=== PATIENT | male | born 1965 | race Caucasian/White ===

== ENCOUNTER 2018-05-15 20:37 | Inpatient (IN) | payer OTHER ==
[~2018-05-15] VITALS: Ht 185.4 cm; Wt 117.5 kg
--- NOTE | ~2018-05-15 | PROC ---
[address] [address] PROCEDURE REPORT Name: ALMA ROSA TREJO Room: [address] IN .R.#: [id number] Admission: 05/15/18 Attend Phys: Arnel Hickey MD Discharge: 05/18/18 Date of : 69 Report #: [id number] THIS REPORT FOR: //name// For GI report, please see the Provation report in Perceptive 7 content. By: [id number] Records Staff MICHELLE /CHRIS
[~2018-05-15 20:37] MED LIST: IBUPROFEN 800800 M1 PO; NORCO 5-325 TA1 EACH PO; ROBAXIN 750 MG750 M1 PO; beta blocker
[2018-05-15 20:42] VITALS: BP 176/128
[2018-05-15] MEDS ORDERED: ZANTAC 150MG T150 MG PO (20:53)
[2018-05-15] MEDS ORDERED: LOPRESSOR25 PO (20:54)
[2018-05-15 21:04] LABS: ABSOLUTE BASOPHILS 0.1 thou/uL (0.0-0.2); ABSOLUTE EOSINOPHILS 0.5 thou/uL (0.0-0.7); ABSOLUTE LYMPHOCYTES 2.3 thou/uL (0.8-5.3); ABSOLUTE MONOCYTES 0.8 thou/uL (0.0-1.2); ABSOLUTE NEUTROPHILS 5.9 thou/uL (1.6-8.1); BASOPHILS 1.3 %; EOSINOPHILS 5.1 %; HEMATOCRIT 45.2 % (42.0-52.0); HEMOGLOBIN 15.5 gm/dL (14.0-18.0); LYMPHOCYTES 23.6 %; MCH 29.4 pg (26.0-34.0); MCHC 34.2 g/dL (28.0-37.0); MCV 85.9 fL (80.0-100.0); MONOCYTES 8.8 %; MPV 8.2 fl. (7.2-11.1); NUCLEATED RBCS 0 /100WBC; PLATELET COUNT* 224 thou/uL (150-400); POLYS 61.2 %; RBC 5.26 mil/uL (4.50-6.00); RDW-CV 13.7 % (10.5-14.5); WBC 9.7 thou/uL (4.0-11.0)
[2018-05-15 21:08] LABS: POC CA IONIZED 5.1 mg/dL (4.5-5.3); POC HEMOGLOBIN 15.6 g/dL (12.0-17.0); POC POTASSIUM 4.4 mmol/L (3.5-4.9)
[2018-05-15 21:15] LABS: INR 0.9; PROTIME 9.3 Seconds (9.20-11.50)
[2018-05-15 21:16] LABS: ANION GAP 8 mmol/L (7-16); BUN 18 mg/dL (7-18); CALCIUM 9.1 mg/dL (8.5-10.1); CHLORIDE 103 mmol/L (98-107); CO2 28 mmol/L (21-32); CREATININE 1.1 mg/dL (0.6-1.3); GLUCOSE 113 mg/dL (70-99); POTASSIUM 4.2 mmol/L (3.5-5.1); SODIUM 139 mmol/L (136-145)
[2018-05-15 21:23] LABS: ALBUMIN 4.3 g/dL (3.4-5.0); ALKALINE PHOSPHATASE 75 U/L (46-116); SGOT 14 U/L (15-37); SGPT 37 U/L (30-65); TOTAL BILIRUBIN 0.6 mg/dL (<0.1-1.0); TOTAL PROTEIN 7.8 g/dL (6.4-8.2); TROPONIN-I LEVEL <0.06 ng/mL (<0.06)
[2018-05-15 23:04] LABS: URINE BILIRUBIN NEGATIVE (Negative); URINE BLOOD NEGATIVE (Negative); URINE CLARITY CLEAR; URINE COLOR YELLOW; URINE GLUCOSE-RANDOM NEGATIVE (Negative); URINE KETONES NEGATIVE (Negative); URINE LEUKOCYTES-REFLEX NEGATIVE (Negative); URINE NITRITE-REFLEX NEGATIVE (Negative); URINE PROTEIN NEGATIVE (Negative); URINE UROBILINOGEN 0.2 E.U./dl (0.2-1.0)
[2018-05-16] VITALS (14 sets, daily range): BP systolic 101–202; BP diastolic 58–127
[2018-05-16 08:05] LABS: HEMATOCRIT 43.7 % (42.0-52.0); HEMOGLOBIN 14.8 gm/dL (14.0-18.0); MCH 29.2 pg (26.0-34.0); MCHC 33.9 g/dL (28.0-37.0); MCV 86.2 fL (80.0-100.0); MPV 8.6 fl. (7.2-11.1); RBC 5.07 mil/uL (4.50-6.00); RDW-CV 13.5 % (10.5-14.5)
[2018-05-16 08:08] LABS: CALCIUM 8.3 mg/dL (8.5-10.1); CREATININE 0.9 mg/dL (0.6-1.3); POTASSIUM 4.1 mmol/L (3.5-5.1); TOTAL BILIRUBIN 0.8 mg/dL (<0.1-1.0); TOTAL PROTEIN 7.3 g/dL (6.4-8.2)
[2018-05-16 09:12] LABS: AMP/METHAMP Negative (Negative); BARBITURATES Negative (Negative); BENZODIAZEPINES Negative (Negative); COCAINE Negative (Negative); METHADONE Negative (Negative); OPIATES POSITIVE (Negative); PCP Negative (Negative); THC Negative (Negative)
--- NOTE | 2018-05-16 10:54 | EKG ---
[place] [address] ELECTROCARDIOGRAM REPORT Name: ALMA ROSA TREJO Room: [address] ADM IN M.R.#: [id number] Admission: 05/15/18 Attend Phys: Arnel Hickey MD Discharge: Date of : 69 Report #: [id number] THIS REPORT FOR: //name// [facility] ED Test Date: 2018-05-15 Test Time: 20:59:58 Pat Name: ALMA ROSA TREJO Department: Room: [address] Gender: M [place] Cutter: : 1965 Requested By: Lidia Spear Order Number: [id number] Reading MD: Serafin Isaacs Measurements Intervals [place] Rate: 78 P: 40 NC: 133 QRS: 28 QRSD: 103 T: 7 QT: 360 QTc: 411 Interpretive Statements sinus arrhythmia Low voltage, precordial leads Compared to ECG 06/30/2013 07:45:03 Low QRS voltage now present Sinus tachycardia no longer present Atrial premature complex(es) no longer present Electronically Signed On 05-16-2018 10:54:30 CDT by Serafin Isaacs [email or web address] <ELECTRONICALLY SIGNED> By: Serafin Isaacs MD, FAC 05/16/18 1054 58 58 Serafin Isaacs MD, [facility] /EPI
--- NOTE | 2018-05-16 11:04 | EKG ---
[place] [address] ELECTROCARDIOGRAM REPORT Name: ALMA ROSA TREJO Room: [address] ADM IN M.R.#: [id number] Admission: 05/15/18 Attend Phys: Arnel Hickey MD Discharge: Date of : 69 Report #: [id number] THIS REPORT FOR: //name// [place] Test Date: 2018-05-16 Test Time: 10:43:39 Pat Name: ALMA ROSA TREJO Department: Room: [address] Gender: M Quality Improvement Specialist: : 1965 Requested By: Eric Morse Order Number: [id number] Rachid MD: Serafin Isaacs Measurements Intervals [place] Rate: 147 P: 160 AR: 160 QRS: 51 QRSD: 97 T: -9 QT: 303 QTc: 474 Interpretive Statements atrial fibrillation Borderline T abnormalities, inferior leads Electronically Signed On 05-16-2018 11:04:05 CDT by Serafin Isaacs [email or web address] <ELECTRONICALLY SIGNED> By: Serafin Isaacs MD, [facility] 05/16/18 1104 1043 1043 Serafin Isaacs MD, FACC /EPI
--- NOTE | 2018-05-16 15:39 | 2DMMODE ---
[place] [address] 2 D/M-MODE ECHOCARDIOGRAM Name: ALMA ROSA TREJO Room: [address] IN .R.#: [id number] Admission: 05/15/18 Attend Phys: Arnel Hickey, Discharge: Date of : 69 Date of Service: 05/16/18 1538 Report #: [id number] THIS REPORT FOR: //name// APPROVED REPORT Study performed: 05/16/2018 14:18:37 EXAM: Comprehensive 2D, Doppler, and color-flow Echocardiogram Patient Location: Out-Patient Status: routine BSA: 2.32 HR: 115 bpm BP: 112/82 mmHg Other Information Study Quality: Fair Indications Atrial Fibrillation 2D Dimensions IVSd: 12.10 (7-11mm) LVOT Diam: 21.60 (18-24mm) LVDd: 45.73 mm PWd: 10.94 (7-11mm) Ascending Ao: 28.54 (22-36mm) LVDs: 29.55 (25-40mm) Aortic Root: 31.57 mm Volumes Left Atrial Volume (Systole) LA ESV Index: 17.20 mL/m2 Aortic Valve AoV Peak Frantz.: 1.50 m/s AO Peak Gr.: 9.04 mmHg LVOT Max P.95 mmHg AO Mean Gr.: 5.84 mmHg LVOT Mean P.52 mmHg LVOT Max V: 1.11 m/s AO V2 VTI: 21.76 cm LVOT Mean V: 0.73 m/s KELLI (VTI): 2.48 cm2 LVOT V1 VTI: 14.73 cm Mitral Valve MV Decel. Time: 159.23 ms MV PHT: 46.18 ms MVA (PHT): 4.76 cm2 [place] [address] 2 D/M-MODE ECHOCARDIOGRAM Name: ALMA ROSA TREJO Room: [address]#: [id number] Admission: 05/15/18 Attend Phys: Arnel Hickey, Discharge: Date of : 69 Date of Service: 05/16/18 1538 Report #: [id number] TDI Medial E' Frantz.: 0.14 m/s Lateral E' Frantz.: 0.15 m/s Pulmonary Valve PV Peak Frantz.: 0.94 m/s PV Peak Gr.: 3.57 mmHg Tricuspid Valve RAP Estimate: 5.00 mmHg TR Peak Gr.: 24.50 mmHg RVSP: 29.50 mmHg PA Pressure: 29.50 mmHg Left Ventricle The left ventricle is normal size. There is normal LV segmental wall motion. There is normal left ventricular wall thickness. Left ventricular systolic function is normal. The left ventricular ejection fraction is within the normal range. LVEF is 60-65%. The left ventricular diastolic function is normal. Right Ventricle Right ventricle is mildly dilated. The right ventricular systolic function is normal. Atria The left atrium size is normal. The right atrium size is normal. Aortic Valve The aortic valve is normal in structure. No aortic regurgitation is present. There is no aortic valvular stenosis. Mitral Valve The mitral valve is normal in structure. There is no mitral valve regurgitation noted. No evidence of mitral valve stenosis. Tricuspid Valve The tricuspid valve is normal in structure. Trace tricuspid regurgitation. Pulmonic Valve Pulmonic valve is not well visualized. There is no pulmonic valvular regurgitation. Great Vessels The aortic root is normal in size. IVC [place] [address] 2 D/M-MODE ECHOCARDIOGRAM Name: ALMA ROSA TREJO Room: [address] IN [facility]#: [id number] Admission: 05/15/18 Attend Phys: Arnel Hickey, Discharge: Date of : 69 Date of Service: 05/16/18 1538 Report #: [id number] Pericardium There is no pericardial effusion. <Conclusion> Left ventricular systolic function is normal. The left ventricular ejection fraction is within the normal range. <ELECTRONICALLY SIGNED> By: Serafin Isaacs MD, FACC 05/16/18 1538 1538 153 Serafin Isaacs MD, [facility] /INF
[2018-05-17] VITALS (7 sets, daily range): BP systolic 105–137; BP diastolic 67–84
--- NOTE | 2018-05-17 14:20 | EKG ---
[place] [address] ELECTROCARDIOGRAM REPORT Name: ALMA ROSA TREJO Room: [address] ADM IN M.R.#: [id number] Admission: 05/15/18 Attend Phys: Arnel Hickey MD Discharge: Date of : 69 Report #: [id number] THIS REPORT FOR: //name// [facility] Test Date: 2018-05-17 Test Time: 08:04:12 Pat Name: ALMA ROSA TREJO Department: Room: [address] Gender: M Sales Assistant: : 1965 Requested By: Serafin Isaacs Order Number: [id number] Rachid MD: Serafin Isaacs Measurements Intervals [place] Rate: 98 P: 49 NE: 133 QRS: 52 QRSD: 101 T: -1 QT: 338 QTc: 432 Interpretive Statements Sinus rhythm Low voltage, precordial leads Baseline wander in lead(s) V1 Compared to ECG 05/16/2018 10:43:39 Low QRS voltage now present Atrial fibrillation no longer present Electronically Signed On 05-17-2018 14:20:12 CDT by Serafin Isacas [email or web address] <ELECTRONICALLY SIGNED> By: Serafin Isaacs MD, [facility] 05/17/18 1420 0804 0804 Serafin Isaacs MD, [facility] /EPI
[2018-05-18] VITALS: BP 153/82
[2018-05-18 04:00] VITALS: BP 144/87
[2018-05-18 08:00] VITALS: BP 144/93
--- NOTE | 2018-05-18 10:08 | EKG ---
[place] [address] ELECTROCARDIOGRAM REPORT Name: ALMA ROSA TREJO Room: [address] ADM IN M.R.#: [id number] Admission: 05/15/18 Attend Phys: Arnel Hickey MD Discharge: Date of : 69 Report #: [id number] THIS REPORT FOR: //name// [facility] Test Date: 2018-05-18 Test Time: 08:41:01 Pat Name: ALMA ROSA TREJO Department: Room: [address] Gender: M Head Stock Operator: : 1965 Requested By: Serafin Isaacs Order Number: [id number] Rachid MD: Serafin Isaacs Measurements Intervals [place] Rate: 97 P: 42 MA: 127 QRS: 33 QRSD: 103 T: -1 QT: 329 QTc: 418 Interpretive Statements Sinus rhythm Low voltage, precordial leads Compared to ECG 05/17/2018 08:04:12 No significant changes Electronically Signed On 05-18-2018 10:08:31 CDT by Serafin Isaacs [email or web address] <ELECTRONICALLY SIGNED> By: Serafin Isaacs MD, [facility] 05/18/18 1008 0 0 Serafin Isaacs MD, [facility] /EPI
--- NOTE | 2018-05-18 10:11 | CON ---
[address] [address] CONSULTATION Name: ALMA ROSA TREJO Room: [address] IN .R.#: [id number] Admission: 05/15/18 Attend Phys: Arnel Hickey MD Discharge: Date of : 69 Report #: [id number] THIS REPORT FOR: //name// CC: Arnel MARTINEZ [facility] physician/PCP DATE OF SERVICE: 05/16/2018 HISTORY OF PRESENT ILLNESS: The patient is a 52-year-old white male who I was asked to see in the hospital today after he was noted to be in atrial fibrillation. The history was obtained from some old records as well as the patient. He has a long history of paroxysmal supraventricular tachycardia. Apparently, he has never been hospitalized. He had to go to the Emergency Room on occasion to have the arrhythmia terminated by intravenous medications. He had a previous cardiac evaluation by my partner, Dr. Houser. He had a stress echocardiogram back in 2014 that was negative for ischemia with an ejection fraction of 55%. The patient last saw Dr. Houser in 2015. He has been on metoprolol XL 50 mg a day. However, he notes that he does have a lot of indigestion which he was told would occur after taking oral metoprolol. Because of dyspepsia, he actually stopped taking metoprolol about 3 weeks ago. He was doing well until yesterday. His abdomen still distended. He also noticed some back pain. He finally came to the Emergency Room last night after he vomited. There was no blood in the vomit. Denies diarrhea or fever. He was admitted to a non-monitored bed. He received pain medications for his back pain. Today, he developed tachycardia and was started on IV diltiazem. Cardiology consultation was requested. He denied any significant feeling of his heart racing, lightheadedness, shortness of breath. He has had no recent chest pain. PAST MEDICAL HISTORY: Significant for hernia repair as a child, hemorrhoidectomy, nasal septal repair. He has a history of hypertension. No history of diabetes, hyperlipidemia. MEDICATIONS: His only medication at home and included the metoprolol, which he stopped taking 3 weeks ago. ALLERGIES: He has no known drug allergies. FAMILY HISTORY: Negative for heart disease. SOCIAL HISTORY: He is . He and his live here in [place]. He works in [employer]. Nonsmoker, rarely drinks alcohol. REVIEW OF SYSTEMS: He is overweight, being 6 feet tall, 250 pounds. He does snore at night. No history of asthma. Does have a lot of indigestion. No liver disease, no kidney disease, no cancer. [place] [address] CONSULTATION Name: ALMA ROSA TREJO Room: [address] IN [facility]#: [id number] Admission: 05/15/18 Attend Phys: Arnel Hickey MD Discharge: Date of : 69 Report #: [id number] chronic skin condition. PHYSICAL EXAMINATION: GENERAL: Revealed a large middle-aged male who appeared in no acute distress. VITAL SIGNS: He had a blood pressure of 110/80, pulse is 100, respirations nonlabored. HEENT: He is anicteric. Conjunctivae pink. Mucous membranes moist. NECK: Veins nondistended. No carotid bruits. Neck supple. CHEST: Clear to auscultation. CARDIOVASCULAR: Irregular tachycardia. ABDOMEN: Soft. EXTREMITIES: Had no edema. Posterior tibial pulse 1+ bilaterally. SKIN: Cool and dry. NEUROLOGIC: Nonfocal. LABORATORY DATA: ECG on admission last night showed a sinus rhythm. Today, the patient appears to be in a narrow complex tachycardia consistent with atrial fibrillation, but no significant ST or T-wave change. His workup so far, he had a CT scan of the abdomen on admission last night that showed no acute abnormality of the renal cysts. CT scan of the chest showed no pulmonary embolus. There is no aortic dissection. He had an ultrasound of the abdomen that showed gallstones, but no evidence of acute cholecystitis. His lab work, sodium 136, creatinine 0.9. Liver function studies were normal. Troponin 0.06. White blood cell count 13.0, hemoglobin 14.8. IMPRESSION AND RECOMMENDATIONS: 1. Back pain. Reason unclear. 2. Distended abdomen with vomiting. Possible cholecystitis. 3. Atrial fibrillation. History of supraventricular tachycardia. At this time, the patient is on IV Cardizem for rate control. If he fails to convert, he might require cardioversion. 4. Snoring at night. Consider sleep apnea. <ELECTRONICALLY SIGNED> By: Serafin Isaacs MD, [facility] 05/18/18 1011 1246 1820Dasurya Isaacs MD, [facility] /nt
[2018-05-18] MEDS ORDERED: PROTONIX40 M1 PO (11:18)
[2018-05-18] MEDS ORDERED: ASPIR-TRIN325 MG PO (11:19)
[2018-05-18] MEDS ORDERED: SORINE 80 MG TA80 M1 PO (11:19)
[2018-05-18] MEDS ORDERED: MIRALAX17 GM PO (11:20)
[2018-05-18] MEDS ORDERED: METAMUCIL FIBE3.4 GM PO (11:21)
[2018-05-18] MEDS ORDERED: TYLENOL325 MG PO (11:22)
[2018-05-18 11:24] VITALS: BP 144/93
[2018-05-18 12:00] VITALS: BP 137/86
--- NOTE | 2018-05-19 11:08 | PATH ---
[address] [address] PATHOLOGY RPT PROCEDURE Name: ALMA ROSA ALVARENGA Room: [address] IN ..#: [id number] Admission: 05/15/18 Date of : [birth year] Discharge: 05/18/18 Report #: [id number] Path Case #: [id number] [facility] Accession Number: [id number] . 01 Material submitted: . GASTRIC BIOPSY . 01 Clinical history: . For H. pylori . 02 Diagnosis: Gastric biopsy: - Mild nonspecific chronic gastritis, negative for Helicobacter pylori organisms and dysplasia. . (RAJEEV:vinicio; 05/18/2018) MBR/05/18/2018 . 02 Electronically signed: . Carlos Kelley MD, Pathologist NPI- [id number] . 01 Gross description: . Received in formalin labeled "Alma Rosa Alvarenga, gastric biopsy for H. pylori," are 3 segments of somers soft tissue measuring 0.9 x 0.6 x 0.2 cm in aggregate dimensions and ranging from 0.3 to 0.5 cm in maximum dimension. The specimen is submitted entirely in cassette A1. (TSD; 05/17/2018) TOB/TOB . 02 Pathologist provided ICD-10: K29.50 . 02 CPT . 599621 Specimen Comment: A courtesy copy of this report has been sent to Specimen Comment: [phone], . Specimen Comment: Report sent to and Performed at: [address] [facility] [address], [place], [place] [id number] MD Marek Nur MD Phone: [phone] Performed at: 02 [facility] [place] [address] [address], [place], [place] [id number] MD Carlos Kelley MD Phone: [phone]
--- NOTE | 2018-05-19 13:22 | CON ---
[address] [address] CONSULTATION Name: ALMA ROSA TREJO Room: [address] IN .R.#: [id number] Admission: 05/15/18 Attend Phys: Arnel Hickey MD Discharge: 05/18/18 Date of : 69 Report #: [id number] THIS REPORT FOR: //name// CC: Arnel Hickey [facility] physician/PCP DATE OF SERVICE: 05/17/2018 HISTORY OF PRESENT ILLNESS: This is a pleasant 52-year-old gentleman with past medical history significant for gallstone disease who is presenting with pain in his back and his chest. The patient reports that he began noticing acute onset pain in the back, which is located in the midline. The pain appeared spontaneously without any particular provocation and the pain was associated with nausea and vomiting. The patient also reports significant abdominal bloating and distention since the onset of the pain. The patient reports intermittent trouble swallowing and occasional reflux symptoms. He denies any weight loss, hematemesis, hematochezia or other alarm symptoms. The patient reports he never had an upper endoscopy performed in the past. PAST MEDICAL HISTORY: The patient reports he has a history of sinus tachycardia, but he also notes that he drinks up to 10 cups of coffee per day and reflux disease, for which he is on ranitidine. PAST SURGICAL HISTORY: None. FAMILY HISTORY: No family history of colon cancer or gastric or pancreatic malignancies. SOCIAL HISTORY: The patient denies any alcohol or tobacco use and denies any recreational drug use. REVIEW OF SYSTEMS: A comprehensive 10-point review of systems is negative except for what is mentioned here. PHYSICAL EXAMINATION: VITAL SIGNS: Temperature 36.8, pulse rate 151, blood pressure 133/90, oxygen saturation 95% on room air. GENERAL: The patient is alert, awake, oriented x 3. HEENT: There is no congestion. Mucous membranes are moist. Pupils are equal, round, reactive to light and accommodation. NECK: Supple. There is no supraclavicular lymphadenopathy. CARDIOVASCULAR: Rate and rhythm regular, S1, S2 present. LUNGS: Clear to auscultation bilaterally. ABDOMEN: Soft. There is no distention, no tenderness, no organomegaly. Bowel sounds present. EXTREMITIES: Warm, well perfused. There is no edema[place] [address] CONSULTATION Name: KAYLAAQUILINOALMA ROSA G Room: [address]#: [id number] Admission: 05/15/18 Attend Phys: Arnel Hickey MD Discharge: 05/18/18 Date of : 69 Report #: [id number] NEUROLOGIC: No focal neurological deficit. SKIN: Warm and dry. LABORATORY DATA: WBC count 9.7, hemoglobin 15.5, hematocrit 45.2, platelet count 224. Sodium 136, potassium 4.1, chloride 101, bicarbonate 28, BUN 15, creatinine 0.9, AST 16, ALT 35, alkaline phosphatase 66. INR 0.9. ASSESSMENT AND PLAN: This is a very pleasant 52-year-old gentleman with past medical history significant for sinus tachycardia and gallstone disease, presenting for evaluation of acute onset back pain associated with abdominal distention and bloating. The patient denies any alarm symptoms and has not had an upper endoscopy done before. We will proceed with EGD tomorrow and further recommendations will based on this testing. <ELECTRONICALLY SIGNED> By: Stef Welch MD 05/19/18 1322 2048 [id number] Welch MD /nt
[2018-07-19] MEDS ORDERED: CORTISPORIN OTI10 ML OTIC (07:39)
== END 2018-05-18 12:47 | disposition home health service (06) | DRG 381 ==
LOC: M.ERS 20:37 → M.2W 23:37 → M.TBA-ER 23:37 → M.ORTHSURG 05-16 01:36 → M.2W 05-16 11:35
PROVIDERS: Emergency Medicine; ADMIT Internal Medicine
PROC: 0DB78ZX Excision of Stomach, Pylorus, Via Natural or Artificial Opening Endoscopic, Diagnostic (ICD-10-PCS; principal; 2018-05-17)
DX: K22.10 Ulcer of esophagus without bleeding (principal); R65.10 Systemic inflammatory response syndrome (SIRS) of non-infectious origin without acute organ dysfunction; K80.20 Calculus of gallbladder without cholecystitis without obstruction; I10 Essential (primary) hypertension; I48.91 Unspecified atrial fibrillation; G47.30 Sleep apnea, unspecified; K21.9 Gastro-esophageal reflux disease without esophagitis; R14.0 Abdominal distension (gaseous); D72.829 Elevated white blood cell count, unspecified; T46.5X5A Adverse effect of other antihypertensive drugs, initial encounter; K25.9 Gastric ulcer, unspecified as acute or chronic, without hemorrhage or perforation; K29.70 Gastritis, unspecified, without bleeding; Z79.899 Other long term (current) drug therapy; Z90.49 Acquired absence of other specified parts of digestive tract; Y92.89 Other specified places as the place of occurrence of the external cause

== ENCOUNTER 2018-05-30 10:07 | Inpatient (IN) | payer OTHER ==
[~2018-05-30] VITALS: Ht 185.4 cm; Wt 112.1 kg
[~2018-05-30 10:07] MED LIST changes: +ASPIR-TRIN325 MG PO; +LOPRESSOR25 PO; +METAMUCIL FIBE3.4 GM PO; +MIRALAX17 GM PO; +PROTONIX40 M1 PO; +SORINE 80 MG TA80 M1 PO; +TYLENOL325 MG PO; +ZANTAC 150MG T150 MG PO
[2018-05-30 11:40] VITALS: BP 117/74
[2018-05-30 14:56] LABS: CREATININE 1.2 mg/dL (0.6-1.3)
[2018-05-30 15:57] VITALS: BP 119/80
--- NOTE | 2018-05-30 17:48 | NUR ---
PATIENT ADMITTED TO ROOM 305 FROM SURGERY CENTER. ALERT AND ORIENTED X 4. RATING RLQ PAIN A 8/10, PRN MORPHINE GIVEN PER MAR ORDERS. IV ZOSYN INFUSING ORDERED. DRAINS X 2 NOTED TO RLQ, BOTH DRAINING SEROSANGIOUS DRAINAGE. SURGICAL DRESSING TO RIGHT QUADRANT AND ABD C/D/I. PATIENT UP TO BATHROOM WITH ASSISTANCE, VOIDING WITHOUT DIFFICULTY. TOELRATED CLEARS FOR LUNCH AND WILL START LOW FAT DIET FOR DINNER. ORIENTED TO CALL LIGHT. AT BEDSIDE. WILL CONTINUE TO MONITOR.
[2018-05-30 21:00] VITALS: BP 115/67
[2018-05-31 04:34] LABS: CALCIUM 8.7 mg/dL (8.5-10.1); CREATININE 1.1 mg/dL (0.6-1.3); POTASSIUM 5.1 mmol/L (3.5-5.1)
[2018-05-31 04:36] LABS: HEMATOCRIT 37.8 % (42.0-52.0); HEMOGLOBIN 12.6 gm/dL (14.0-18.0); MCH 29.2 pg (26.0-34.0); MCHC 33.3 g/dL (28.0-37.0); MCV 87.5 fL (80.0-100.0); MPV 7.6 fl. (7.2-11.1); RBC 4.32 mil/uL (4.50-6.00); RDW-CV 13.8 % (10.5-14.5); WBC 14.3 thou/uL (4.0-11.0)
--- NOTE | 2018-05-31 05:34 | NUR ---
PATIENT SLEPT PART OF THE NIGHT. IV ANTIBIOTICS WERE GIVEN ORDERED. PATIENT WAS GIVEN PAIN MEDICINE ABOUT EVERY FOUR HOURS WITH GOOD RELIEF. MARY DRAIN AND EDGARD TUBE REMAIN IN PLACE WITH SEROSANGUINEOUS DRAINAGE. PATIENT IS POSSIBLY GOING HOME TODAY. WILL CONTINUE TO MONITOR.
[2018-05-31 08:00] VITALS: BP 117/71
--- NOTE | 2018-05-31 08:22 | NUR ---
Nutrition: RD noted diet order was "Regular - Low Fat." RD changed to Heart Healthy diet order with allowance of salt. (This will be a 'low fat' diet.)
[2018-05-31] MEDS ORDERED: CEFUROXIME500 MG PO (12:44)
[2018-05-31 14:16] VITALS: BP 117/71
--- NOTE | 2018-05-31 14:58 | NUR ---
ASSUMED CARE THIS AM, NO DISTRESS NOTED, DISCOMFORT AT DRAIN SITE MANAGED WELL WITH ORAL MEDICATION, SEE ASSESSMENT FOR DETAILS. DISCHARGE ORDERS RECEIVED, IV ACCESS REMOVED WITHOUT INCIDENT. DISCHARGE INSTRUCTIONS, F/U APPTS, PRESCRIPTIONS DISCUSSED WITH AND GIVEN TO PATIENT, DENIES QUESTIONS AT THIS TIME. DRAIN SITE CARE AND OUTPUT MEASUREMENT DEMONSTRATED WITH PATIENT AND , DENY QUESTIONS, PERFORMED WELL PRIOR TO DISCHARGE. PERSONAL EFFECTS GATHERED, ACCOUNTED FOR, IN COMPANY OF PATIENT, TRANSPORTED TO MAIN ENTRANCE VIA WHEELCHAIR IN STABLE CONDITION.
== END 2018-05-31 15:02 | disposition home or self-care (01) | DRG 446 ==
LOC: M.3W 10:07
PROVIDERS: ADMIT Surgery
DX: K81.0 Acute cholecystitis (principal); Z79.899 Other long term (current) drug therapy

== ENCOUNTER → 2018-07-19 | Day surgery (SDC) | payer OTHER ==
[~2018-07-19] MED LIST changes: +CEFUROXIME500 MG PO; +CORTISPORIN OTI10 ML OTIC
--- NOTE | ~2018-07-19 | H ---
[address] [address] HISTORY AND PHYSICAL Name: ALMA ROSA TREJO Room: [address] [place]#: [id number] Admission: 07/19/18 Attend Phys: Juanjose Rod DO Discharge: 07/19/18 Date of : 69 Report #: [id number] THIS REPORT FOR: //name// Please refer to the History and Physical performed in the physician's office. By: [id number] Records Staff MICHELLE /CHRIS
[2018-07-19 07:53] LABS: HEMATOCRIT 41.3 % (42.0-52.0); HEMOGLOBIN 13.8 gm/dL (14.0-18.0); MCH 28.4 pg (26.0-34.0); MCHC 33.4 g/dL (28.0-37.0); MPV 7.7 fl. (7.2-11.1); RBC 4.86 mil/uL (4.50-6.00); RDW-CV 13.6 % (10.5-14.5); WBC 10.7 thou/uL (4.0-11.0)
[2018-07-19 08:07] LABS: CALCIUM 8.9 mg/dL (8.5-10.1)
[2018-07-19 08:15] LABS: ALBUMIN 3.5 g/dL (3.4-5.0); TOTAL BILIRUBIN 0.5 mg/dL (<0.1-1.0); TOTAL PROTEIN 7.6 g/dL (6.4-8.2)
--- NOTE | 2018-07-19 11:33 | NUR ---
WAS ASKED TO ARRANGE TRANSFER TO [facility]/DR DURAN AND HOSPITALIST BY DR FISHER. CALL AT 1100 TO [facility] TRANSFER TEAM, SPOKE WITH CHARY. FAXED FACE SHEET TO HER AND GAVE INFO. AWAIT CALL BACK
--- NOTE | 2018-08-26 14:45 | OP ---
[address] [address] OPERATIVE REPORT Name: MAYAALMA ROSA Lin Room: [facility]#: [id number] Admission: 07/19/18 Attend Phys: Juanjose Rod DO Discharge: Date of : 69 Report #: [id number] THIS REPORT FOR: //name// CC: Juanjose Reyes NP DATE OF SERVICE: 07/19/2018 REFERRING PHYSICIAN: Yesenia Garay, Nurse practitioner POSTOPERATIVE DIAGNOSIS: Acute gangrenous cholecystitis with a history of laparoscopic placement of cholecystostomy tube. POSTOPERATIVE DIAGNOSIS: Acute gangrenous cholecystitis with a history of laparoscopic placement of cholecystostomy tube. PROCEDURE: Diagnostic laparoscopy with lysis of adhesions and attempted laparoscopic removal of gallbladder converted to laparotomy, with attempted removal of gallbladder and lysis of adhesions. SURGEON: Juanjose Rod DO [facility] CENTER MANAGER: Alessandro Alexander DO, PGY2, resident. [place] RECORDER: Carson Salmeron DO, PGY2, resident. ANESTHESIA: General endotracheal. ESTIMATED BLOOD LOSS: 50 mL. COMPLICATIONS: Unable to visualize structures including even the gallbladder in order to attempt removal, so removal of the gallbladder was aborted and case was discussed with Dr. Brett Cheng at [facility] who recommended transfer to him. INDICATIONS FOR PROCEDURE: The patient is a 53-year-old gentleman who previously presented for outpatient laparoscopic cholecystectomy. At the time of surgery, he was noted to have purulent drainage from the gallbladder and we were unable to visualize structures in order to remove the gallbladder, so we placed a cholecystostomy tube laparoscopically. The patient was then admitted after surgery for a day or so and then discharged home. It has been approximately 6 weeks since that placement and we elected to take the patient back for laparoscopic removal of cholecystostomy tube and laparoscopic cholecystectomy. He has been having very little pain associated [place] [address] OPERATIVE REPORT Name: ALMA ROSA TREJO Room: [facility]#: [id number] Admission: 07/19/18 Attend Phys: Juanjose Rod, Discharge: Date of : 69 Report #: [id number] drainage from the cholecystostomy tube. DESCRIPTION OF PROCEDURE: After obtaining proper consents and discussing risks and complications with the patient, he was taken to the operating room, laid on the supine position, administered general anesthesia. He was then prepped and draped in the usual fashion. A timeout was performed. We confirmed the appropriate patient and procedure. Preoperative antibiotics had been given. SCDs were in place. We then made a small supraumbilical skin incision through the patient's previous incision. This was carried down through the skin into the subcutaneous tissue using electrocautery for hemostasis. Once the fascia was encountered, it was incised along the midline. The peritoneum was then bluntly opened using a hemostat. A finger was placed inside the peritoneal cavity to assure that there were no abilio-incisional adhesions. Next, 2-0 Vicryl sutures were placed in a [id number]-obmwy fashion to secure the Kelsey trocar, which was then inserted and insufflation was begun. Once insufflation was complete, full visual inspection of the anterior abdominal organs was performed. This revealed adhesions, where the cholecystostomy tube had been. There also appeared to be adhesions of the omentum to the liver. There were no other gross abnormalities identified at this point. We then placed a 5 mm trocar in the subxiphoid position through the patient's previous incision. Two more 5 mm trocars were placed in the right upper quadrant. Once these were placed, I attempted to take down the adhesions. The majority of the adhesions around the cholecystostomy tube tract were taken down laterally on the liver. I was easily able to take down some adhesions, which appeared soft and filmy; however, medially towards the falciform ligament, the omentum was firmly attached to the liver. This area was quite hard. I was able to dissect some of this away and then we followed the tract from the cholecystostomy tube down; however, I was unable to ever really visualize the gallbladder. I could not tell if there was transverse colon attached up to the gallbladder and after approximately 30-45 minutes of attempting to take down the adhesions, I elected to convert to an open procedure, where I would be able to feel the structures better. At this point, we stopped the insufflation. All trocars were removed. I then made a right subcostal incision, which was carried down through the skin and the subcutaneous tissue using electrocautery for hemostasis. The rectus fascia was then incised. I then partially divided the rectus muscle and the posterior fascia and peritoneum were then opened. Once within the peritoneal cavity, I did pack the omentum inferiorly and I used blunt dissection with my hand to attempt to feel the structures of the gallbladder. Again, I was unable to even visualize the gallbladder. At this point, it felt very hard and indurated around this area including the omentum and it appeared that there was some either duodenum or colon attached up against the gallbladder as well. After approximately 30-45 minutes, again I felt that I was going to be unable to identify structures required in order to remove the gallbladder safely. At this point, I packed the wound and I went out and talked to the patient's to explain my findings and at that same time, I also put in a page to Dr. Brett Cheng who called me back shortly after I finished talking to the patient[place] [address] OPERATIVE REPORT Name: ALMA ROSA TREJO Room: [facility].#: [id number] Admission: 07/19/18 Attend Phys: Juanjose Rod DO Discharge: Date of : 69 Report #: [id number] After I explained the findings, he recommended that we transfer the patient to him at [facility], where he would be able to undergo surgery hopefully tomorrow. At this point, after I rescrubbed, we copiously irrigated. I placed a 19-Bahraini MARY drain through one of the 5 mm incisions that we had made for the laparoscopic surgery. We then assured hemostasis and removed all sponges. We then closed the peritoneum using a running 0 PDS suture. The fascia was closed in 2 layers using a running 0 Prolene suture. The subcutaneous tissues were closed using 3-0 Vicryl suture and then injected with 0.5% Marcaine without epinephrine. The skin was then closed using migel. All the other wounds were closed, closing the umbilical fascia with the 2 previously placed 0 Vicryl sutures plus 2 additional 0 Vicryl sutures and the skin incision over the umbilical incision. The subxiphoid incision and one right-sided incision were closed using 4-0 Monocryl subcuticular stitches. Sterile dressings were then placed. The patient was awakened in the operating room and transported to recovery room in stable condition. <ELECTRONICALLY SIGNED> By: Juanjose Rod DO 08/26/18 [id number] [id number] Rod DO /nt
== END | disposition home or self-care (01) ==
LOC: M.SUR 07:18 → M.TBA 11:12 → M.SUR 11:12 → M.TBA 11:12 → M.SUR 11:43 → M.TBA 12:55
PROVIDERS: Surgery
DX: K81.0 Acute cholecystitis (principal); K66.0 Peritoneal adhesions (postprocedural) (postinfection); Z97.8 Presence of other specified devices; Z93.59 Other cystostomy status; Z53.31 Laparoscopic surgical procedure converted to open procedure; I48.91 Unspecified atrial fibrillation; Z79.01 Long term (current) use of anticoagulants; Z79.899 Other long term (current) drug therapy

== ENCOUNTER → 2018-07-27 | Outpatient (CLI) | payer OTHER ==
[2018-07-27 14:41] LABS: HEMATOCRIT 36.8 % (42.0-52.0); HEMOGLOBIN 12.2 gm/dL (14.0-18.0); MCH 28.2 pg (26.0-34.0); MCV 85.3 fL (80.0-100.0); MPV 7.1 fl. (7.2-11.1); RBC 4.32 mil/uL (4.50-6.00); WBC 8.1 thou/uL (4.0-11.0)
[2018-07-27 14:57] LABS: ALBUMIN 2.8 g/dL (3.4-5.0); DIRECT BILIRUBIN 0.1 mg/dL (<0.1-0.3); TOTAL BILIRUBIN 0.3 mg/dL (<0.1-1.0); TOTAL PROTEIN 7.2 g/dL (6.4-8.2)
== END ==
LOC: M.LAB 14:20
DX: I48.91 Unspecified atrial fibrillation (principal); Z90.49 Acquired absence of other specified parts of digestive tract

== ENCOUNTER → 2018-08-08 | Outpatient (CLI) | payer OTHER ==
[2018-08-08 11:01] LABS: HEMATOCRIT 38.2 % (42.0-52.0); MCH 28.5 pg (26.0-34.0); MCV 83.9 fL (80.0-100.0); MPV 7.3 fl. (7.2-11.1); RBC 4.55 mil/uL (4.50-6.00); RDW-CV 14.1 % (10.5-14.5); WBC 10.9 thou/uL (4.0-11.0)
[2018-08-08 11:31] LABS: ALBUMIN 3.4 g/dL (3.4-5.0); DIRECT BILIRUBIN 0.1 mg/dL (<0.1-0.3); TOTAL BILIRUBIN 0.4 mg/dL (<0.1-1.0); TOTAL PROTEIN 7.1 g/dL (6.4-8.2)
== END ==
LOC: M.LAB 10:24
PROVIDERS: Surgery
DX: L02.211 Cutaneous abscess of abdominal wall (principal); Z90.49 Acquired absence of other specified parts of digestive tract

== ENCOUNTER → 2018-09-23 | Outpatient (CLI) | payer OTHER ==
[2018-09-23 11:12] LABS: HEMATOCRIT 40.2 % (42.0-52.0); HEMOGLOBIN 13.3 gm/dL (14.0-18.0); MCH 27.6 pg (26.0-34.0); MCHC 33.1 g/dL (28.0-37.0); MCV 83.2 fL (80.0-100.0); MPV 7.6 fl. (7.2-11.1); RBC 4.83 mil/uL (4.50-6.00); RDW-CV 14.4 % (10.5-14.5); WBC 8.2 thou/uL (4.0-11.0)
[2018-09-23 11:59] LABS: ALBUMIN 3.4 g/dL (3.4-5.0); CALCIUM 9.2 mg/dL (8.5-10.1); CREATININE 1.1 mg/dL (0.6-1.3); POTASSIUM 4.5 mmol/L (3.5-5.1); TOTAL BILIRUBIN 0.7 mg/dL (<0.1-1.0); TOTAL PROTEIN 7.8 g/dL (6.4-8.2)
== END ==
LOC: M.LAB 10:50
PROVIDERS: Surgery
DX: R52 Pain, unspecified (principal); I48.91 Unspecified atrial fibrillation; Z90.49 Acquired absence of other specified parts of digestive tract

== ENCOUNTER → 2019-08-24 | Outpatient (CLI) | payer OTHER | LOC: M.RAD 15:52 | DX: J84.10 Pulmonary fibrosis, unspecified (principal); J40 Bronchitis, not specified as acute or chronic; M25.78 Osteophyte, vertebrae ==

== ENCOUNTER → 2020-01-31 | Outpatient (CLI) | payer OTHER ==
[2020-01-31 16:11] LABS: ABSOLUTE BASOPHILS 0.1 thou/uL (0.0-0.2); ABSOLUTE EOSINOPHILS 0.4 thou/uL (0.0-0.7); ABSOLUTE LYMPHOCYTES 1.9 thou/uL (0.8-5.3); ABSOLUTE MONOCYTES 0.6 thou/uL (0.0-1.2); ABSOLUTE NEUTROPHILS 5.5 thou/uL (1.6-8.1); BASOPHILS 0.9 %; EOSINOPHILS 4.4 %; HEMATOCRIT 45.1 % (42.0-52.0); LYMPHOCYTES 22.6 %; MCH 30.3 pg (26.0-34.0); MCHC 35.5 g/dL (28.0-37.0); MCV 85.2 fL (80.0-100.0); MONOCYTES 7.5 %; MPV 8.1 fl. (7.2-11.1); NUCLEATED RBCS 0 /100WBC; PLATELET COUNT* 233 thou/uL (150-400); POLYS 64.6 %; WBC 8.5 thou/uL (4.0-11.0)
== END ==
LOC: M.LAB 15:49
PROVIDERS: ATTEND Nurse Practitioner
DX: K92.1 Melena (principal)

== ENCOUNTER → 2020-02-01 | Outpatient (CLI) | payer OTHER | LOC: M.LAB 09:52 | PROVIDERS: ATTEND Nurse Practitioner | DX: K92.1 Melena (principal) ==

== ENCOUNTER → 2020-05-29 | Outpatient (CLI) | payer OTHER ==
[2020-05-29 15:40] LABS: ALKALINE PHOSPHATASE 82 U/L (46-116); ANION GAP 9 mmol/L (7-16); BUN 15 mg/dL (7-18); CALCIUM 8.7 mg/dL (8.5-10.1); CHLORIDE 104 mmol/L (98-107); CHOLESTEROL 164 mg/dL (<200); CO2 27 mmol/L (21-32); CREATININE 1.1 mg/dL (0.6-1.3); GLUCOSE 120 mg/dL (70-99); HDL CHOLESTEROL 19 mg/dL (>40); SGPT 46 U/L (30-65); SODIUM 140 mmol/L (136-145); TC:HDL 8.6 Ratio (Not establshd); TOTAL BILIRUBIN 0.6 mg/dL (<0.1-1.0); TOTAL PROTEIN 7.3 g/dL (6.4-8.2); TRIGLYCERIDE 588 mg/dL (<150); VLDL 118 mg/dL (<40)
[2020-05-29 15:41] LABS: SERUM ASSESSMENT Moderate Lipemia
[2020-05-29 16:16] LABS: SGOT 26.4 U/L (15-37)
== END ==
LOC: M.LAB 14:54
PROVIDERS: ATTEND Registered Nurse
DX: I48.91 Unspecified atrial fibrillation (principal)